=== PATIENT | male | born 1955 | race Caucasian/White ===

== ENCOUNTER 2018-12-09 14:00 | Emergency (ER) | payer MEDICARE, OTHER ==
--- NOTE | 2018-12-09 15:18 | EDM.PDOC ---
ED HPI GENERAL MEDICAL PROBLEM - General Stated Complaint: LUNGS ARE ON FIRE Time Seen by Provider: 12/09/18 15:17 Source of Information: Reports: Patient History Limitations: Reports: No Limitations - History of Present Illness INITIAL COMMENTS - FREE TEXT/NARRATIVE: Dionisio is a 63 year old male who presents to the ED with c/o "burning in his lungs." He reports for the past two days he has had a burning type pain throughout his chest. Pain does not worsen with breathing, but is rather a constant pain. He does have some associated shortness of breath, but denies any cough, dizziness, sinus congestion, headaches, extremity swelling, diaphoresis. He also reports that starting at 11 am today he vomited. Has vomited 3 times since then. Has had decreased appetite. He has not tried anything for the pain. Has not noticed any alleviating or aggravating factors. He reports PMH of a kidney transplant in 2010 in [place], type II DM, and hypertension. His PCP is Dr. Castro at the [facility] in [place]. Additionally, he reports he has been told he has two aneurysms in his brain. He does not know further details and records are not available for my review. Onset Date: 12/07/18 Duration: Constant Location: Reports: Chest Quality: Reports: Burning Severity: Moderate Improves with: Reports: None Worsens with: Reports: None Associated Symptoms: Reports: Chest Pain, Nausea/Vomiting, Shortness of Breath. Denies: Confusion, Cough, cough w sputum, Diaphoresis, Fever/Chills, Headaches , Loss of Appetite, Malaise, Rash, Seizure, Syncope, Weakness Chest Pain Score (Numeric/FACES): 3 - Related Data Allergies Allergy/AdvReac Type Severity Reaction Status Date / Time adhesive tape Allergy Hives Verified 12/09/18 16:29 bee venom protein (honey bee) Allergy Cannot Verified 12/09/18 16:29 Remember ciprofloxacin Allergy Rash Verified 12/09/18 16:29 hydrocodone Allergy Itching Verified 12/09/18 16:29 iodine Allergy Hives Verified 12/09/18 16:29 loratadine [From Claritin-D] Allergy Edema Verified 12/09/18 16:29 morphine Allergy Itching Verified 12/09/18 16:29 pravastatin Allergy Cannot Verified 12/09/18 16:29 Remember pseudoephedrine Allergy Edema Verified 12/09/18 16:29 [From Claritin-D] simvastatin Allergy Cannot Verified 12/09/18 16:29 Remember Home Meds: Home Meds Fish Oil/[place]-3 Fatty Acids [Fish Oil 1,000 MG] 2 each PO QAM 12/09/18 [History ] Fluticasone Propionate [Flonase] 1 spray NS DAILY 12/09/18 [History] Insulin Aspart [NovoLOG] 25 - 30 unit SUBCUT TIDMEALS 12/09/18 [History] Insulin Detemir [Levemir] 35 - 45 unit SQ BID 12/09/18 [History] Ipratropium [place] 1 spray NS BID 12/09/18 [History] Latanoprost/Pf [Latanoprost 0.005% Eye Drop] 1 drop OP BEDTIME 12/09/18 [History ] Magnesium Oxide 420 mg PO BID 12/09/18 [History] Metoprolol Tartrate 50 mg PO BID 12/09/18 [History] Mycophenolate Mofetil 1,000 mg PO BID 12/09/18 [History] cycloSPORINE [Cyclosporine] 100 mg PO BID 12/09/18 [History] predniSONE [Prednisone] 5 mg PO DAILY 12/09/18 [History] Past Medical History Cardiovascular History: Reports: High Cholesterol, Hypertension Genitourinary History: Reports: Chronic Renal Insuffiency, Other (See Below) ( Kidney Transplant) Endocrine/Metabolic History: Reports: Diabetes, Type II - Past Surgical History Male Surgical History: Reports: Other (See Below) (Kidney Transplant 2010) Social & Family History - Tobacco Use Smoking Status *Q: Former Smoker Used Tobacco, but Quit: Yes Month/Year Tobacco Last Used: Quit < 20 years ago ED ROS GENERAL - Review of Systems Review Of Systems: See Below Constitutional: Reports: Decreased Appetite. Denies: Fever, Chills, Weakness, Fatigue, Diaphoresis HEENT: Reports: No Symptoms. Denies: Vision Change Respiratory: Reports: Shortness of Breath. Denies: Wheezing, Pleuritic Chest Pain, Cough, Sputum, Hemoptysis Cardiovascular: Reports: Chest Pain, Dyspnea on Exertion. Denies: Edema, Lightheadedness, Orthopnea, Palpitations, Syncope Endocrine: Reports: No Symptoms GI/Abdominal: Reports: Decreased Appetite, Nausea, Vomiting. Denies: Abdominal Pain, Constipation, Diarrhea, Hematochezia, Melena : Reports: No Symptoms. Denies: Dysuria, Flank Pain, Frequency, Hematuria, Urgency Musculoskeletal: Reports: No Symptoms Skin: Reports: No Symptoms. Denies: Diaphoresis Neurological: Denies: Confusion, Dizziness, Headache, Numbness, Syncope, Tingling, Weakness Psychiatric: Reports: No Symptoms Hematologic/Lymphatic: Reports: No Symptoms Immunologic: Reports: No Symptoms ED EXAM, GENERAL - Physical Exam Exam: See Below Exam Limited By: No Limitations General Appearance: Alert, WD/WN, No Apparent Distress Eye Exam: Bilateral Eye: EOMI, Normal Fundi, Normal Inspection, PERRL Ears: Normal External Exam, Normal Canal, Hearing Grossly Normal, Normal TMs Nose: Normal Inspection, Normal Mucosa, No Blood Throat/Mouth: Normal Inspection, Normal Lips, Normal Teeth, Normal Gums, Normal Oropharynx, Normal Voice, No Airway Compromise Head: Atraumatic, Normocephalic Neck: Normal Inspection, Supple, Non-Tender, Full Range of Motion Respiratory/Chest: No Respiratory Distress, Lungs Clear, Normal Breath Sounds, No Accessory Muscle Use, Chest Non-Tender Cardiovascular: Normal Peripheral Pulses, Regular Rate, Rhythm, No Gallop, No JVD, No Murmur, No Rub Peripheral Pulses: 1+: Posterior Tibial (L), Posterior Tibial (R), Dorsalis Pedis (L), Dorsalis Pedis (R) GI/Abdominal: Normal Bowel Sounds, Soft, Non-Tender, No Organomegaly, No Distention, No Abnormal Bruit, No Mass Back Exam: Normal Inspection, Full Range of Motion, NT Extremities: Normal Inspection, Normal Range of Motion, Non-Tender, Normal Capillary Refill, Pedal Edema (trace) Neurological: Alert, Oriented, CN II-XII Intact, Normal Cognition, Normal Gait, Normal Reflexes, No Motor/Sensory Deficits Psychiatric: Normal Affect, Normal Mood Skin Exam: Warm, Dry, Intact, Normal Color, No Rash Lymphatic: No Adenopathy Course - Vital Signs Last Recorded V/S: Last Vital Signs Temp 97.6 F 12/09/18 14:08 Pulse Resp 16 12/09/18 14:08 BP Pulse Ox - Orders/Labs/Meds Orders: Active Orders 24 hr Category Date Time Status Chest 2V [CR] Stat Exams 12/09/18 15:16 Taken Nitroglycerin [Nitrostat] Med 12/09/18 16:02 Active 0.4 mg SL Q5M PRN Medication Orders Nitroglycerin (Nitrostat) 0.4 mg SL Q5M PRN PRN Reason: Chest Pain Labs: Laboratory Tests 12/09/18 12/09/18 12/09/18 Range/Units 15:30 15:30 15:30 WBC 8.9 (5.0-10.0) 10^3/uL RBC 4.94 (4.50-6.00) 10^6/uL Hgb 14.3 (14.0-18.0) g/dL Hct 44.2 (40.0-54.0) % MCV 89.5 (82.0-94.0) fL MCH 28.9 (27.0-32.0) pg MCHC 32.4 L (33.0-38.0) g/dL RDW Coeff of Conner 13.0 (11.0-15.0) % Plt Count 295 (150-400) 10^3/uL Neut % (Auto) 80.9 (35-85) % Lymph % (Auto) 12.8 (10-55) % [place] % (Auto) 5.9 (0-16) % Eos % (Auto) 0.3 (0-5) % Baso % (Auto) 0.1 (0-3) % Neut # (Auto) 7.22 H (1.80-7.00) 10^3/uL Lymph # (Auto) 1.14 (1.00-4.80) 10^3/uL [place] # (Auto) 0.53 (0.00-0.80) 10^3/uL Eos # (Auto) 0.03 (0.00-0.45) 10^3/uL Baso # (Auto) 0.01 10^3/uL PT 9.8 (9.7-12.3) SEC INR 0.94 (0.92-1.18) APTT (23.2-32.3) SEC D-Dimer, Quantitative 0.77 H (0.00-0.50) Sodium 141 (136-145) mEq/L Potassium 4.4 (3.5-5.0) mEq/L Chloride 101 (98-106) mEq/L Carbon Dioxide 31 (21-32) mmol/L BUN 25 H (7-18) mg/dL Creatinine 1.8 H (0.7-1.3) mg/dL Est Cr Clr Drug Dosing 40.64 mL/min Estimated GFR (MDRD) 38 L (>=60) mL/min Glucose 183 H (75-99) mg/dL Calcium 9.5 (8.4-10.1) mg/dL Total Bilirubin 0.7 (0.0-1.0) mg/dL AST 29 (15-37) U/L ALT 33 (12-78) U/L Alkaline Phosphatase 79 (46-116) U/L Lactate Dehydrogenase 248 H (100-190) U/L Troponin I 1.112 H (0.00-0.06) ng/mL C-Reactive Protein 1.3 H (0.2-0.8) mg/dL Total Protein 7.9 (6.4-8.2) g/dL Albumin 3.6 (3.4-5.0) g/dL 12/09/18 Range/Units 16:03 WBC (5.0-10.0) 10^3/uL RBC (4.50-6.00) 10^6/uL Hgb (14.0-18.0) g/dL Hct (40.0-54.0) % MCV (82.0-94.0) fL MCH (27.0-32.0) pg MCHC (33.0-38.0) g/dL RDW Coeff of Conner (11.0-15.0) % Plt Count (150-400) 10^3/uL Neut % (Auto) (35-85) % Lymph % (Auto) (10-55) % [place] % (Auto) (0-16) % Eos % (Auto) (0-5) % Baso % (Auto) (0-3) % Neut # (Auto) (1.80-7.00) 10^3/uL Lymph # (Auto) (1.00-4.80) 10^3/uL [place] # (Auto) (0.00-0.80) 10^3/uL Eos # (Auto) (0.00-0.45) 10^3/uL Baso # (Auto) 10^3/uL PT (9.7-12.3) SEC INR (0.92-1.18) APTT 23.9 (23.2-32.3) SEC D-Dimer, Quantitative (0.00-0.50) Sodium (136-145) mEq/L Potassium (3.5-5.0) mEq/L Chloride (98-106) mEq/L Carbon Dioxide (21-32) mmol/L BUN (7-18) mg/dL Creatinine (0.7-1.3) mg/dL Est Cr Clr Drug Dosing mL/min Estimated GFR (MDRD) (>=60) mL/min Glucose (75-99) mg/dL Calcium (8.4-10.1) mg/dL Total Bilirubin (0.0-1.0) mg/dL AST (15-37) U/L ALT (12-78) U/L Alkaline Phosphatase (46-116) U/L Lactate Dehydrogenase (100-190) U/L Troponin I (0.00-0.06) ng/mL C-Reactive Protein (0.2-0.8) mg/dL Total Protein (6.4-8.2) g/dL Albumin (3.4-5.0) g/dL Meds: Medications Generic Name Dose Route Start Last Admin Trade Name Freq PRN Reason Stop Dose Admin Nitroglycerin 0.4 mg 12/09/18 16:02 Nitrostat SL Q5M PRN Chest Pain Discontinued Medications Generic Name Dose Route Start Last Admin Trade Name Freq PRN Reason Stop Dose Admin Aspirin 324 mg 12/09/18 16:01 Aspirin PO 12/09/18 16:02 ONETIME ONE Heparin Sodium (Porcine) Confirm 12/09/18 16:33 Heparin Sodium Administered 12/09/18 16:34 Dose 10,000 units .ROUTE .STK-MED ONE Heparin Sodium/Dextrose Confirm 12/09/18 16:33 Heparin 25,000 Units In D5w 500 Ml Administered 12/09/18 16:34 Dose 500 mls @ as directed .ROUTE .STK-MED ONE - Re-Assessments/Exams Free Text/Narrative Re-Assessment/Exam: 12/09/18 16:00 Discussed lab results with patient. Troponin elevated to 1.112. LDH elevated to 248. EKG shows NSR with some ST/T wave abnormalities, especially in V5. Creatinine 1.8. Patient unsure of baseline creatinine. D-dimer elevated to 0.77. Labs otherwise stable. 12/09/18 16:07 Attempted to consult [facility]. They do not have cardiac intervention and recommend transfer elsewhere. 12/09/18 16:[address] Analyst Dr. Guthrie via telephone, who recommends morphine, metoprolol, additional dose of nitroglycerin, and initiate heparin gtt , as well as direct transfer to forestry laborer. Discussed risks and benefits of transfer with patient. Risks of transfer include worsening of condition, , MVA/crash enroute. Benefits of transfer include higher level of care and cardiac intervention. Risks of nontransfer include worsening of condition, , and no cardiac intervention. Benefits of nontransfer include convenience. Patient verbalized understanding and was agreeable to transfer. Please see pharmacy documentation for dosing on heparin gtt. 12/09/18 16:45 Patient reports chest pain improved to 2/10 after Nitro. VSS stable. BP improved. Pulse 62. Will hold off on metoprolol. Patient has allergy to morphine and refuses administration as it "caused him to itch like crazy." Chest xray negative for acute changes. No infiltrate , effusions, or masses. Does have central area of density at the region of the esophageal hiatus, likely airline security representative of aortic extasia, however aneurysmal dilation of aorta or retrocardiac hiatal hernia cannot be excluded per radiology. 12/09/18 17:11 Patient reports pain has almost completely subsided after Nitro. Reconsulted with automobile mechanic re: known brain aneurysm as patient brought this up just prior to initiating heparin gtt while discussing risks vs. benefit of heparin. Recommend proceed with heparin gtt as patient requires this prior to forestry laborer. Discuss risks of heparin gtt with patient. Patient verbalized understanding and was agreeable to starting heparin gtt. Unable to find ALS transfer crew to take patient to [place]. [facility] consulted and accepted the patient, however they are unable to land in [place] due to weather. [place] [facility] will meet [facility] in [place]. Please see nurses notes for VS throughout ED stay and PMH, PSH, SH, and FH. Departure - Departure Time of Disposition: 17:30 Disposition: DC/Tfer to Acute Hospital 02 Condition: Fair Clinical Impression: NSTEMI (non-ST elevated myocardial infarction), History of kidney transplant Chronic kidney disease Qualifiers: Chronic kidney disease stage: stage 2 (mild) Qualified Code(s): N18.2 - Chronic kidney disease, stage 2 (mild) Hypertension Qualifiers: Hypertension type: essential hypertension Qualified Code(s): I10 - Essential ( primary) hypertension - Discharge Information *PRESCRIPTION DRUG MONITORING PROGRAM REVIEWED*: Not Applicable *COPY OF PRESCRIPTION DRUG MONITORING REPORT IN PATIENT JOVANI: Not Applicable Referrals: PCP,None [Primary Care Provider] - - Problem List & Annotations (1) NSTEMI (non-ST elevated myocardial infarction) SNOMED Code(s): 11235243 Code(s): I21.4 - NON-ST ELEVATION (NSTEMI) MYOCARDIAL INFARCTION Status: Acute Current Visit: Yes (2) Chronic kidney disease SNOMED Code(s): 725354560 Code(s): N18.9 - CHRONIC KIDNEY DISEASE, UNSPECIFIED Status: Acute Current Visit: Yes Qualifiers: Chronic kidney disease stage: stage 2 (mild) Qualified Code(s): N18.2 - Chronic kidney disease, stage 2 (mild) (3) History of kidney transplant Status: Acute Current Visit: Yes (4) Hypertension SNOMED Code(s): 85697685 Code(s): I10 - ESSENTIAL (PRIMARY) HYPERTENSION Status: Acute Current Visit: Yes Qualifiers: Hypertension type: essential hypertension Qualified Code(s): I10 - Essential (primary) hypertension - Problem List Review Problem List Initiated/Reviewed/Updated: Yes - My Orders Last 24 Hours: My Active Orders 12/09/18 15:16 Chest 2V [CR] Stat 12/09/18 16:02 Nitroglycerin [Nitrostat] 0.4 mg SL Q5M PRN - Assessment/Plan Last 24 Hours: My Active Orders 12/09/18 15:16 Chest 2V [CR] Stat 12/09/18 16:02 Nitroglycerin [Nitrostat] 0.4 mg SL Q5M PRN Plan: Transfer via [facility] ALS crew to [place] where they will meet [facility] for transport to . Patient will go directly to forestry laborer, per Dr. Guthrie. Patient discharged from facility in satisfactory condition.
[2018-12-09] MEDS: Aspirin 81 MG Tab.Chew PO ONE (16:05)
[2018-12-09] MEDS: Nitroglycerin 0.4 MG Tab.SL SL PRN (16:19)
[2018-12-09] MEDS: Heparin Sodium 10,000 Units/1 ML MDV ONE (17:14)
[2018-12-09] MEDS: Heparin Sodium/D5W 500 ML ONE (17:15)
== END 2018-12-09 17:35 ==
LOC: CC.ED 14:00
DX: I21.4 Non-ST elevation (NSTEMI) myocardial infarction (principal); I12.9 Hypertensive chronic kidney disease with stage 1 through stage 4 chronic kidney disease, or unspecified chronic kidney disease; N18.2 Chronic kidney disease, stage 2 (mild); E11.22 Type 2 diabetes mellitus with diabetic chronic kidney disease; Z88.8 Allergy status to other drugs, medicaments and biological substances; Z88.1 Allergy status to other antibiotic agents; Z88.5 Allergy status to narcotic agent; Z79.899 Other long term (current) drug therapy; Z79.4 Long term (current) use of insulin; Z87.891 Personal history of nicotine dependence; Z94.0 Kidney transplant status
CPT/HCPCS: 36415; 71046; 80053; 83615; 84484; 85025; 85379; 85610; 85730; 86140; 87804; 93005; 96365; 99285; A9270-GY; J1644

== ENCOUNTER 2019-08-11 12:36 | Emergency (ER) | payer OTHER ==
--- NOTE | 2019-08-11 13:01 | EDM.PDOC ---
ED HPI GENERAL MEDICAL PROBLEM - General Chief Complaint: Eye Problems Stated Complaint: LEFT EYE BLURRY Time Seen by Provider: 08/11/19 12:50 Source of Information: Reports: Patient History Limitations: Reports: No Limitations - History of Present Illness INITIAL COMMENTS - FREE TEXT/NARRATIVE: Dionisio is a 64 year old male who presents to the ED with c/o blurry vision, black floaters, and a gilbert shaped bright light to his left eye. He reports symptoms started when he woke up this morning. [facility] [place] [facility] present to the nearest ED. He reports if he moves his eye a certain way he will see bright light. Does report bottom half of left eye is blurry under the "gilbert shaped ring." Denies any eye pain. He does have extensive PMH. Onset: Today Duration: Constant Location: Reports: Other (left eye) Associated Symptoms: Reports: No Other Symptoms - Related Data Allergies Allergy/AdvReac Type Severity Reaction Status Date / Time adhesive tape Allergy Hives Verified 08/11/19 12:46 bee venom protein (honey bee) Allergy Cannot Verified 08/11/19 12:46 Remember ciprofloxacin Allergy Rash Verified 08/11/19 12:46 fluvastatin Allergy Cannot Verified 08/11/19 12:46 Remember hydrocodone Allergy Itching Verified 08/11/19 12:46 iodine Allergy Hives Verified 08/11/19 12:46 lisinopril Allergy Cannot Verified 08/11/19 12:46 Remember loratadine [From Claritin-D] Allergy Edema Verified 08/11/19 12:46 morphine Allergy Itching Verified 08/11/19 12:46 pravastatin Allergy Cannot Verified 08/11/19 12:46 Remember pseudoephedrine Allergy Edema Verified 08/11/19 12:46 [From Claritin-D] rosiglitazone Allergy Cannot Verified 08/11/19 12:46 Remember rosuvastatin Allergy Cannot Verified 08/11/19 12:46 Remember simvastatin Allergy Cannot Verified 08/11/19 12:46 Remember Home Meds: Home Meds Acetaminophen 650 mg PO Q4H PRN 12/09/18 [History] Fish Oil/[place]-3 Fatty Acids [Fish Oil 1,000 MG] 2 each PO QAM 12/09/18 [History ] Fluticasone Propionate [Flonase] 1 spray NS DAILY PRN 12/09/18 [History] Insulin Aspart [NovoLOG] 25 - 30 unit SUBCUT TIDMEALS 12/09/18 [History] Insulin Detemir [Levemir] 30 - 40 unit SQ BID 12/09/18 [History] Ipratropium [place] 1 spray NS BID 12/09/18 [History] Latanoprost/Pf [Latanoprost 0.005% Eye Drop] 1 drop EYEBOTH BEDTIME 12/09/18 [ History] Multivitamin with Minerals [Multivitamins with Minerals] 1 each PO DAILY [History] Mycophenolate Mofetil 1,000 mg PO BID 12/09/18 [History] Ranitidine HCl 150 mg PO BEDTIME 12/09/18 [History] Ubidecarenone [Co Q-10] 100 mg PO DAILY 12/09/18 [History] cycloSPORINE [Cyclosporine] 75 mg PO TID 12/09/18 [History] predniSONE [Prednisone] 5 mg PO DAILY 12/09/18 [History] Dextran 70/Hypromellose/PF [Genteal Tears 0.1%-0.3% Drop] 1 each EYEBOTH QID PRN 01/20/19 [History] Metoprolol Tartrate 25 mg PO DAILY 01/20/19 [History] Rosuvastatin [Crestor] 10 mg PO DAILY 01/20/19 [History] Aspirin [Adult Low Dose Aspirin EC] 81 mg PO DAILY 08/11/19 [History] Past Medical History Cardiovascular History: Reports: High Cholesterol, Hypertension, [place] Other Cardiovascular History: had burning in lungs since December, but burning came and went. Came to ER because it lasted longer than usual. Since CABG: has had some cp, but thinks it is incisional--incision looks good; has had back problems; SOB comes and goes; had some palpitations last week, none since; says angiogram insertion site healing; reports losing 25 pounds with this surgery: says his blood sugars have been around 200 in the mornings, discussed. Has an appt with cardiac surgeon on 01-29-19; had a previous rehab appt, did not come because of a "cold." Watches his diet due to kidney transplant and diabetes. Does not have any exercise equipment at home, encouraged to walk. Said he was a previous smoker, quit in --smoked for about 22 years.Likes to fish and mow lawn in the spring. Says his right ankle has swelling at time; has fistula in right antecubital area where he received dialysis in the past. Genitourinary History: Reports: Chronic Renal Insuffiency, Other (See Below) Other Genitourinary History: kidney transplant Endocrine/Metabolic History: Reports: Diabetes, Type II - Past Surgical History Male Surgical History: Reports: Other (See Below) Social & Family History - Tobacco Use Smoking Status *Q: Former Smoker Used Tobacco, but Quit: Yes Month/Year Tobacco Last Used: 15 - Caffeine Use Caffeine Use: Reports: Coffee - Recreational Drug Use Recreational Drug Use: No ED ROS GENERAL - Review of Systems Review Of Systems: ROS reveals no pertinent complaints other than HPI. ED EXAM GENERAL W FULL EYE - Physical Exam Exam: See Below Exam Limited By: No Limitations General Appearance: Alert, WD/WN, No Apparent Distress Eye Exam: Left Eye: Vision Changes, Bilateral Eye: EOMI, PERRL Eyelids: Bilateral: Normal Appearance Conjunctiva & Sclera: Bilateral: Normal Appearance Extraocular Movements: Bilateral: Intact Pupils: Normal Accommodation Pupillary Size: Bilateral: 3 mm Pupillary Reaction: Bilateral: Brisk Anterior Chamber: Bilateral: Normal Appearance Posterior Chamber: Bilateral: Unable to Examine Ears: Normal External Exam, Normal Canal, Hearing Grossly Normal, Normal TMs Nose: Normal Inspection, Normal Mucosa, No Blood Throat/Mouth: Normal Inspection, Normal Lips, Normal Teeth, Normal Gums, Normal Oropharynx, Normal Voice, No Airway Compromise Head: Atraumatic, Normocephalic Neck: Normal Inspection, Supple, Non-Tender, Full Range of Motion Respiratory/Chest: No Respiratory Distress, Lungs Clear, Normal Breath Sounds, No Accessory Muscle Use, Chest Non-Tender Cardiovascular: Normal Peripheral Pulses, Regular Rate, Rhythm, No Edema, No Gallop, No JVD, No Murmur, No Rub Course - Vital Signs Last Recorded V/S: Last Vital Signs Temp 98.1 F 08/11/19 12:40 Pulse 72 08/11/19 12:40 Resp 16 08/11/19 12:40 BP 126/66 08/11/19 12:40 Pulse Ox 99 08/11/19 12:40 - Re-Assessments/Exams Free Text/Narrative Re-Assessment/Exam: Did opt to consult with optometry immediately upon patient's presentation as I suspect retinal detachment. Contact Dr. Reina's office, who will see patient right away. Departure - Departure Time of Disposition: 12:57 Disposition: Home, Self-Care 01 Condition: Fair Clinical Impression: Retinal detachment - Discharge Information *PRESCRIPTION DRUG MONITORING PROGRAM REVIEWED*: Not Applicable *COPY OF PRESCRIPTION DRUG MONITORING REPORT IN PATIENT JOVANI: Not Applicable Referrals: Ana Castro MD [Primary Care Provider] - Forms: ED Department Discharge Additional Instructions: - Go to [facility] to see Dr. Reina immediately
== END 2019-08-11 13:03 | disposition home or self-care (01) ==
LOC: CC.ED 12:36
DX: H33.22 Serous retinal detachment, left eye (principal); I25.2 Old myocardial infarction; E78.5 Hyperlipidemia, unspecified; I12.9 Hypertensive chronic kidney disease with stage 1 through stage 4 chronic kidney disease, or unspecified chronic kidney disease; E11.22 Type 2 diabetes mellitus with diabetic chronic kidney disease; N18.9 Chronic kidney disease, unspecified; Z88.1 Allergy status to other antibiotic agents; Z91.030 Bee allergy status; Z88.5 Allergy status to narcotic agent; Z91.048 Other nonmedicinal substance allergy status; Z95.5 Presence of coronary angioplasty implant and graft; Z79.82 Long term (current) use of aspirin; Z87.891 Personal history of nicotine dependence; Z94.0 Kidney transplant status; Z79.899 Other long term (current) drug therapy; Z95.1 Presence of aortocoronary bypass graft
CPT/HCPCS: 99283

== ENCOUNTER 2023-10-31 09:52 | Emergency (ER) | payer OTHER ==
[2023-10-31 10:39] LABS: BASOPHILS ABSOLUTE AUTO 0.01 10^3/uL (0.00-0.50); BASOPHILS PERCENT AUTO 0.2 % (0-1); EOSINOPHILS ABSOLUTE AUTO 0.03 10^3/uL (0.00-1.50); EOSINOPHILS PERCENT AUTO 0.5 % (0-6); HEMATOCRIT 48.3 % (42.0-52.0); HEMOGLOBIN 15.4 g/dL (14.0-18.0); IMMATURE GRAN ABSOLUTE AUTO 0.01 10^3/uL (0.00-0.49); IMMATURE GRAN PERCENT AUTO 0.2 % (0.0-4.9); LYMPHOCYTES PERCENT AUTO 21.6 % (24-44); MEAN CORPUSCULAR HEMOGLOBIN 28.3 pg (27.0-32.0); MEAN CORPUSCULAR HGB CONC 31.9 g/dL (32.0-36.0); MEAN CORPUSCULAR VOLUME 88.6 fL (83.0-97.0); MONOCYTES ABSOLUTE AUTO 0.44 10^3/uL (0.00-1.50); MONOCYTES PERCENT AUTO 7.9 % (0-10); NEUTROPHILS ABSOLUTE AUTO 3.87 x10^3/uL (1.80-8.00); NEUTROPHILS PERCENT AUTO 69.6 % (41-71); PLATELET COUNT,PLT 137 10^3/uL (150-400); RED BLOOD CELL COUNT 5.45 x10^6/uL (4.50-6.00); WHITE BLOOD CELL COUNT,WBC 5.6 10^3/uL (4.0-11.0)
[2023-10-31 10:53] LABS: ALBUMIN 3.1 g/dL (3.4-5.0); BILIRUBIN TOTAL 0.8 mg/dL (0.0-1.0); C-REACTIVE PROTEIN 1.96 mg/dL (<=0.50); CALCIUM 8.8 mg/dL (8.4-10.1); CREATININE 1.8 mg/dL (0.7-1.3); MAGNESIUM 2.1 mg/dL (1.8-2.4); POTASSIUM,K 4.4 mEq/L (3.5-5.0); PROTEIN TOTAL,TP 7.6 g/dL (6.4-8.2)
[2023-10-31 11:16] LABS: INFLUENZA A NAA NEGATIVE (NEGATIVE); INFLUENZA B NAA NEGATIVE (NEGATIVE)
[2023-10-31 11:18] LABS: CORONAVIRUS COVID-19 NAA POSITIVE (NEGATIVE)
[2023-10-31] MEDS ORDERED: Meclizine 12.5 MG Tab PO ONE (11:38)
== END 2023-10-31 12:15 | disposition home or self-care (01) ==
LOC: CC.ED 09:52
DX: U07.1 COVID-19 (principal); R42 Dizziness and giddiness; G44.219 Episodic tension-type headache, not intractable; I12.9 Hypertensive chronic kidney disease with stage 1 through stage 4 chronic kidney disease, or unspecified chronic kidney disease; N18.9 Chronic kidney disease, unspecified; E11.22 Type 2 diabetes mellitus with diabetic chronic kidney disease; E78.00 Pure hypercholesterolemia, unspecified; Z87.891 Personal history of nicotine dependence; Z79.82 Long term (current) use of aspirin; Z79.4 Long term (current) use of insulin; Z79.899 Other long term (current) drug therapy; Z88.8 Allergy status to other drugs, medicaments and biological substances; Z88.5 Allergy status to narcotic agent; Z91.030 Bee allergy status; Z88.1 Allergy status to other antibiotic agents; Z91.048 Other nonmedicinal substance allergy status
CPT/HCPCS: 0240U; 36415; 70450; 71046; 80053; 83735; 84484; 85025; 86140; 93005; 99284